=== PATIENT | female | born 1950 | race Caucasian/White ===

== ENCOUNTER 2017-09-17 14:54 | Emergency (ER) | payer MEDICARE, OTHER ==
[2017-09-17 15:09] VITALS: BP 169/72; PULSE 94; RESP 20; TEMP 98.1
--- NOTE | 2017-09-17 15:17 | ED ---
Lower Extremity Injury HPI - General Source: patient, RN notes reviewed Mode of arrival: wheelchair Limitations: no limitations <Grecia Cody - Last Filed: 09/17/17 15:16> <Han Landers - Last Filed: 09/17/17 16:20> - General Chief Complaint: Extremity Injury, Lower Stated Complaint: Ankle injury Time Seen by Provider: 09/17/17 15:12 - History of Present Illness Initial Comments: This is a 67-year-old female who presents to the emergency department with chief complaint of left ankle injury. Patient states she was working out in the yard this morning. At approximately 11 AM the metal handle of a wagon flew back and hit her in the lateral aspect of her left ankle. She states that she has been bearing weight and ambulating but is doing so in pain. Denies any other injuries or trauma. Denies fever, chills, chest pain, shortness of breath , abdominal pain, nausea or vomiting, constipation or diarrhea, dysuria or hematuria, numbness or tingling, headache or vision changes. (Grecia Cody) - Related Data Allergies Allergy/AdvReac Type Severity Reaction Status Date / Time methylprednisolone Allergy Unknown Verified 09/17/17 15:11 Review of Systems ROS Other: All systems not noted in ROS Statement are negative. <Grecia Cody - Last Filed: 09/17/17 15:16> ROS Other: All systems not noted in ROS Statement are negative. <Han Landers - Last Filed: 09/17/17 16:20> ROS Statement: Those systems with pertinent positive or pertinent negative responses have been documented in the HPI. Past Medical History Past Medical History: Chest Pain / Angina, Diabetes Mellitus History of Any Multi-Drug Resistant Organisms: None Reported Past Surgical History: Section, Cholecystectomy, Hysterectomy, Orthopedic Surgery Past Psychological History: No Psychological Hx Reported Smoking Status: Never smoker Past Alcohol Use History: None Reported Past Drug Use History: None Reported <Grecia Cody - Last Filed: 09/17/17 15:16> General Exam Limitations: no limitations <Grecia Cody - Last Filed: 09/17/17 15:16> <Han Landers - Last Filed: 09/17/17 16:20> - General Exam Comments Initial Comments: General: Awake and alert, well-developed; in no apparent distress. HEENT: Head atraumatic, normocephalic. Pupils are equal, round and reactive to light. Extraocular movements intact. Oropharynx moist without erythema or exudate. Neck: Supple. Normal ROM. Cardiovascular: Regular rate and rhythm. No murmurs, rubs or gallops. Chest symmetrical. Respiratory: Lungs clear to auscultation bilaterally. No wheezes, rales or rhonchi. Normal respiratory effort with no use of accessory muscles. Musculoskeletal: Normal range of motion of the left ankle. There is mild soft tissue swelling and tenderness at the lateral malleolus. No medial malleolar tenderness. Sensation is intact. Pedal pulses are 2+ equal and palpable bilaterally. Skin: [place], warm and dry without rashes or lesions. Neurological: Alert and oriented x3. CN II-XII grossly intact. Speech is fluent and answers are appropriate. No focal neuro deficits. Psychiatric: Normal mood and affect. No overt signs of depression or anxiety noted. (Grecia Cody) Vital Signs 09/17/17 15:06 Temperature 98.1 F Pulse Rate 94 Respiratory 20 Rate Blood Pressure 169/72 O2 Sat by Pulse 98 Oximetry Medical Decision Making <Grecia Cody - Last Filed: 09/17/17 15:16> - Radiology Data Radiology results: report reviewed (I did review the imaging and report no acute findings.), image reviewed <Han Landers - Last Filed: 09/17/17 16:20> - Medical Decision Making I did personally do the [id number] evaluation the patient did discuss the findings with her. No evidence of any fractures. Patient will be discharged she was instructed to use ice and elevation for last couple days Advil or Motrin for pain. (Han Landers) Disposition <Grecia Cody - Last Filed: 09/17/17 15:16> Is patient prescribed a controlled substance at d/c from ED?: No <Han Landers - Last Filed: 09/17/17 16:20> Clinical Impression: Contusion of left ankle Disposition: HOME SELF-CARE Condition: Good Instructions: Ankle Sprain (ED), Foot Contusion (ED) Additional Instructions: Over the counter Advil or Motrin for pain relief, follow up with primary care in 1-2 days. Rest, ice, elevate and compression with doretha wrap for pain relief and swelling as well. Referrals: None,Stated [Primary Care Provider] - 1-2 days
--- NOTE | 2017-09-17 15:39 | XR ---
Left ankle HISTORY: Trauma and pain 3 views of the left ankle Bone mineralization, joint spaces and alignment are maintained. No significant soft tissue swelling p resent. There is a plantar calcaneal spur. Arthropathy changes present in the foot. IMPRESSION: No fracture or dislocation is evident.
== END 2017-09-17 16:24 | disposition home or self-care (01) ==
LOC: EC 14:54
DX: S90.02XA Contusion of left ankle, initial encounter (principal); Z88.8 Allergy status to other drugs, medicaments and biological substances; W20.8XXA Other cause of strike by thrown, projected or falling object, initial encounter; Y92.096 Garden or yard of other non-institutional residence as the place of occurrence of the external cause
CPT/HCPCS: 99283

== ENCOUNTER 2019-04-16 11:29 | Emergency (ER) | payer MEDICARE ==
--- NOTE | 2019-04-16 12:27 | XR ---
EXAMINATION TYPE: XR chest 2V DATE OF EXAM: 04/16/2019 COMPARISON: NONE TECHNIQUE: PA and lateral views submitted. HISTORY: Cough FINDINGS: The lungs are clear and there is no pneumothorax, pleural effusion, or focal pneumonia. No overt fa ilure. Degenerative change of the spine. IMPRESSION: 1. No acute process.
--- NOTE | 2019-04-16 13:26 | ED ---
General Adult HPI - General Chief complaint: Upper Respiratory Infection Stated complaint: Congested, Headache, Weakness Time Seen by Provider: 04/16/19 12:57 Source: patient Mode of arrival: ambulatory Limitations: no limitations - History of Present Illness Initial comments: Dictation was produced using tsumobi dictation software. please excuse any grammatical, word or spelling errors. Chief Complaint: 68-year-old female presents with nasal congestion, runny nose for 2 weeks. History of Present Illness: 68-year-old female she states that for the last week she's been having cough, congestion fatigue. She states her symptoms have been ongoing for the last 2 weeks. Denies any overt sick contacts. Patient states she has a minimally productive cough. She does complain of constitutional symptoms. She does not however complain of any fatigue. His any chest pain. The ROS documented in this emergency department record has been reviewed and confirmed by me. Those systems with pertinent positive or negative responses have been documented in the HPI. All other systems are other negative and/or noncontributory. PHYSICAL EXAM: General Impression: Alert and oriented x3, not in acute distress HEENT: Normocephalic atraumatic, extra-ocular movements intact, pupils equal and reactive to light bilaterally, mucous membranes moist, rhinorrhea Cardiovascular: Heart regular rate and rhythm, S1&S2 audible, no murmurs, rubs or gallops Chest: Lungs clear to auscultation bilaterally, no rhonchi, no wheeze, no rales Abdomen: Bowel sounds present, abdomen soft, non-tender, non-distended, no organomegaly Musculoskeletal: Pulses present and equal in all extremities, no peripheral edema Motor: no focal deficits noted Neurological: CN II-XII grossly intact, no focal motor or sensory deficits noted Skin: Intact with no visualized rashes Psych: Normal affect and mood ED course: 68-year-old female presents with flulike symptoms for the last 2 weeks. Signs upon arrival shows heart rate of 105, rest of vital signs within acceptable limits.Return evaluation obtained. Mild leukocytosis 12.9, metabolic panel is unremarkable. Influenza test negative. Chest x-ray shows no acute processes. Given the patient has had prolonged symptoms for up to 2 weeks believe patient would benefit from a trial of antibiotics. Patient given fluids. She is reevaluated at bedside with improvement. Patient clear for discharge she is advised follow-up with PCP upon discharge. - Related Data Previous Rx's Medication Instructions Recorded Azithromycin [Zithromax Z-pack] 0 mg PO DIRECTED #6 tab 04/16/19 Allergies Allergy/AdvReac Type Severity Reaction Status Date / Time methylprednisolone Allergy Unknown Verified 04/16/19 12:01 Review of Systems ROS Statement: Those systems with pertinent positive or pertinent negative responses have been documented in the HPI. ROS Other: All systems not noted in ROS Statement are negative. Past Medical History Past Medical History: Chest Pain / Angina, Diabetes Mellitus History of Any Multi-Drug Resistant Organisms: None Reported Past Surgical History: Section, Cholecystectomy, Heart Catheterization, Hysterectomy, Orthopedic Surgery Past Psychological History: No Psychological Hx Reported Smoking Status: Never smoker Past Alcohol Use History: None Reported Past Drug Use History: None Reported General Exam Limitations: no limitations Course Vital Signs 04/16/19 04/16/19 04/16/19 11:58 12:13 13:54 Temperature 98.4 F 99 F 98.9 F Pulse Rate 105 H 99 Respiratory 20 20 Rate Blood Pressure 148/84 148/91 O2 Sat by Pulse 94 L 95 Oximetry Medical Decision Making - Lab Data Result diagrams: 04/16/19 13:45 04/16/19 13:45 Lab Results 04/16/19 04/16/19 04/16/19 Range/Units 12:25 13:45 13:45 WBC 12.9 H (3.8-10.6) k/uL RBC 4.68 (3.80-5.40) m/uL Hgb 13.9 (11.4-16.0) gm/dL Hct 41.0 (34.0-46.0) % MCV 87.7 (80.0-100.0) fL MCH 29.8 (25.0-35.0) pg MCHC 34.0 (31.0-37.0) g/dL RDW 12.1 (11.5-15.5) % Plt Count 325 (150-450) k/uL Neutrophils % 73 % Lymphocytes % 20 % Monocytes % 5 % Eosinophils % 1 % Basophils % 0 % Neutrophils # 9.5 H (1.3-7.7) k/uL Lymphocytes # 2.5 (1.0-4.8) k/uL Monocytes # 0.6 (0-1.0) k/uL Eosinophils # 0.1 (0-0.7) k/uL Basophils # 0.0 (0-0.2) k/uL Sodium 132 L (137-145) mmol/L Potassium 4.7 (3.5-5.1) mmol/L Chloride 98 (98-107) mmol/L Carbon Dioxide 24 (22-30) mmol/L Anion Gap 10 mmol/L BUN 15 (7-17) mg/dL Creatinine 0.73 (0.52-1.04) mg/dL Est GFR (CKD-EPI)AfAm >90 (>60 ml/min/1.73 sqM) Est GFR (CKD-EPI)NonAf 86 (>60 ml/min/1.73 sqM) Glucose 260 H (74-99) mg/dL Calcium 9.7 (8.4-10.2) mg/dL Magnesium 2.0 (1.6-2.3) mg/dL Influenza Type A RNA Not Detected (Not Detectd) Influenza Type B (PCR) Not Detected (Not Detectd) Disposition Clinical Impression: Common cold Disposition: HOME SELF-CARE Condition: Good Instructions (If sedation given, give patient instructions): Upper Respiratory Infection (ED) Prescriptions: Azithromycin [Zithromax Z-pack] 0 mg PO DIRECTED #6 tab Is patient prescribed a controlled substance at d/c from ED?: No Referrals: None,Stated [Primary Care Provider] - 1-2 days Time of Disposition: 14:22
[2019-04-16 13:54] VITALS: PULSE 99
[2019-04-16 13:55] LABS: Basophils % (A) 0 %; Eosinophils # (A) 0.1 k/uL (0-0.7); Eosinophils % (A) 1 %; HGB 13.9 gm/dL (11.4-16.0); Lymphocytes # (A) 2.5 k/uL (1.0-4.8); Lymphocytes % (A) 20 %; MCH 29.8 pg (25.0-35.0); MCV 87.7 fL (80.0-100.0); Monocytes # (A) 0.6 k/uL (0-1.0); Monocytes % (A) 5 %; Neutrophils # (A) 9.5 k/uL (1.3-7.7); Neutrophils % (A) 73 %; Platelet Count 325 k/uL (150-450); RBC 4.68 m/uL (3.80-5.40); RDW 12.1 % (11.5-15.5); WBC 12.9 k/uL (3.8-10.6)
[2019-04-16 14:08] LABS: African American GFR (CKD) >90 (>60 ml/min/1.73 sqM); Anion Gap 10 mmol/L; Blood Urea Nitrogen 15 mg/dL (7-17); Calcium 9.7 mg/dL (8.4-10.2); Carbon Dioxide 24 mmol/L (22-30); Chloride 98 mmol/L (98-107); Glucose 260 mg/dL (74-99); Non-African American GFR(CKD) 86 (>60 ml/min/1.73 sqM); Potassium 4.7 mmol/L (3.5-5.1); Sodium 132 mmol/L (137-145)
[2019-04-16 14:38] VITALS: BP 143/62; RESP 18; TEMP 98.5
== END 2019-04-16 14:38 | disposition home or self-care (01) ==
LOC: EC 11:29
DX: J00 Acute nasopharyngitis [common cold] (principal); D72.829 Elevated white blood cell count, unspecified; Z88.8 Allergy status to other drugs, medicaments and biological substances
CPT/HCPCS: 36415; 71046; 80048; 83735; 85025; 87502; 99284

== ENCOUNTER → 2021-08-28 | Outpatient (CLI) | payer BC, MEDICARE ==
--- NOTE | 2021-08-28 12:23 | MR ---
EXAMINATION TYPE: MR cervical spine wo con DATE OF EXAM: 08/28/2021 COMPARISON: Neck pain HISTORY: Neck pain TECHNIQUE: Multiplanar, multisequence images of the cervical spine were acquired without contrast. C2-C3: Degenerative disc disease with disc desiccation. Mild facet arthropathy. No canal stenosis or focal herniation. Neural foramina patent C3-C4: Disc desiccation and mild degenerative disc disease. There is uncovertebral joint hypertrophy greater on the right with mild bilateral foraminal encroachment but no evidence of disc herniation or canal stenosis C4-C5: Moderate to severe degenerative disc disease and uncovertebral joint hypertrophy and mild disc bulging capped by spur. No Canal stenosis. Moderate bilateral foraminal encroachment. C5-C6: Severe degenerative disc disease with discogenic marrow changes. No focal disc herniation. The re is uncovertebral joint hypertrophy greater on the right with mild right foraminal encroachment. No Canal stenosis C6-C7: Moderate to severe degenerative disc disease with no evidence of canal stenosis or disc hernia tion. Neural foramina patent. C7-T1: Disc bulging but no focal herniation or canal stenosis. No foraminal encroachment. Incidental note is made of severe degenerative disc disease T3-T4 with sagittal disc bulging. Cervical segments are intact. There is normal alignment. Cervical spinal cord is of normal signal. Craniovertebral junction relationships are within normal limits. IMPRESSION: 1. Multilevel moderate to severe degenerative disc disease with disc bulging seen at C4-C5. There is a moderate bilateral foraminal encroachment but no canal stenosis. 2. Multilevel uncovertebral joint hypertrophy and foraminal encroachment as discussed above. 3. Sagittal disc bulging T3-T4 correlate with thoracic spine MRI as clinically warranted.
== END | disposition home or self-care (01) ==
LOC: RADMRIMAIN 09:41
PROVIDERS: ATTEND Family Medicine
DX: M50.221 Other cervical disc displacement at C4-C5 level (principal); M51.24 Other intervertebral disc displacement, thoracic region; M89.38 Hypertrophy of bone, other site
CPT/HCPCS: 72141

== ENCOUNTER → 2022-02-15 | Outpatient (CLI) | payer BC, MEDICARE ==
[2022-02-15 09:06] VITALS: BP 149/81; PULSE 99; RESP 18; TEMP 98.3
--- NOTE | 2022-02-15 09:24 | P.PAINPG ---
PQRS Measure Charge Sheet Comment: HISTORY OF PRESENT ILLNESS: 71 yr old female as a referral from Dr Lau presents today w severe and chronic neck and LBP secondary to DDD, spondylosis and facet arthropathy without myelopathy for evaluation. Pt states her neck pain is currently at 2/10 in intensity but escalates as high as 4/10 w hyperextension and UE lifting. She admits her neck pain is not as problematic as her LBP. Her LBP pain level is currently at 7/10 in intensity, constant, dull/ achy in character w shooting pain towards the RLE. Pain is provoked by overactivity. Pain is received w PT x 6 wks in Oct 2021, heat, meds (Aleve), topicals, sitting w LEs elevated, repositioning and rest. PMH Chest Pain / Angina, Diabetes Mellitus PSH: Section, Cholecystectomy, Heart Catheterization, Hysterectomy, Orthopedic Surgery SH: Negative x 3 FH: Non contributory All: See list Meds: See list REVIEW OF ORGAN SYSTEMS: CONSTITUTIONAL: No fevers or chills. No recent weight loss. NEUROLOGICAL: + numbness and tingling along the distal extremities. No seizure disorders or headaches. MUSCULOSKELETAL: + pain PSYCHIATRIC: Denies current depression or suicidal thoughts. Physical Examinations : Constitutional : Cooperative , not in acute distress . Neurologic : Cranial nerve II to XII intact. No focal neurological deficits. Psychiatric : alert & oriented x 3. Matching mood & appropriate affect. Judgment & insight intact. Musculoskeletal : Cervical Spine Motor strength in the deltoid and biceps: Normal right side. Normal Left side Motor strength biceps and the wrist extensors: Normal right side . Normal left side Motor strength in the triceps muscle: Normal right side. Normal left side Deep tendon reflexes: Normal at the biceps. Normal at Brachioradialis. Normal at triceps Vertebral body tenderness to deep palpation over Cervical facet loading test: positive bilaterally Spurling test: positive bilaterally Neck distraction test: positive bilaterally Nigel sign: positive bilaterally Lumbar spine Motor strength lower extremities ,thigh and legs 5/5 Right side , 5/5 Left side Deep tendon reflexes : Normal Knee Jerk. Normal Ankle Jerk Vertebral body tenderness over L4 Lumbar facet Loading Test: positive Right / positive Left Range of motion of the lumbar spine Flexion 30 degrees, extension 10 degrees Straight Leg Raise test: Left/ Right positive at degree James test: positive right / positive left. Severe tenderness over the Sacroiliac joint on the Right / Left sides Gaenslen test: positive bilaterally Seated flexion test: positive bilaterally. Sacral spine : Severe tenderness over the Sacroiliac joint: right side / left side Range of motion: Flexion of the lumbar spine <60 degrees Range of motion: Extension of the mariusz mbar spine <20 degrees Gaenslen's Test positive Valerio's Test positive James test: positive right side / left side Thigh Thrust Test Sacral Thrust Test Imaging: pending Assessment/ Plan : Cervical DDD, Cervical Spondylosis, Lumbar DDD Recommendation of RTO in 2 wks after completion of MRI of the lumbar spine for a re evaluation Risks, benefits of procedure discussed and patient verbalized understanding. Denies aspirin or anti- coagulant use or medical history of diabetes. Protocol for discontinuation/ continuation of medications marciano procedure discussed. All questions answered. I have spent greater than 30 minutes on patient care today. Dr Haskins was available by phone for the evaluation of this patient. The time was used to review the medical records including relevant urine studies and Prescription history (MAPs), review of the available imaging, evaluation and examination of the patient, coordination of care with the medical staff and if applicable referring physicians, as well as creation of the medical record PQRS Narrative: Smoking Status Never smoker Home Medications: Ambulatory Orders Dulaglutide [Trulicity] 0.75 mg SQ 02/15/22 Controlled Substance Measures - Controlled Substance Measures Is patient prescribed a controlled substance at discharge?: No
== END ==
LOC: PNWHC3 07:50
PROVIDERS: ATTEND Specialist
DX: M47.812 Spondylosis without myelopathy or radiculopathy, cervical region (principal); M51.36 Other intervertebral disc degeneration, lumbar region; Z88.8 Allergy status to other drugs, medicaments and biological substances
CPT/HCPCS: 99211

== ENCOUNTER → 2022-03-02 | Outpatient (CLI) | payer BC, MEDICARE ==
--- NOTE | 2022-03-02 15:43 | MR ---
EXAMINATION TYPE: MR lumbar spine wo con DATE OF EXAM: 03/02/2022 COMPARISON: None HISTORY: Lumbar spine pain CONTRAST: 0 mL intravenous . TECHNIQUE: Multiplanar, multisequence images of the lumbar spine were acquired. FINDINGS: L5-S1: Facet hypertrophy is present. No significant posterior lateral thecal sac compression is evide nt. No spinal canal stenosis. Moderate right foraminal stenosis due to disc bulging into the foramen is present. Correlate with right S1 radicular symptoms. No significant disc bulge or focal disc herni ation is evident. L4-L5: No spinal canal stenosis or neural foraminal stenosis is present. Mild diffuse disc bulge is p resent with minimal anterior thecal sac contact. L3-L4: No focal disc herniation or significant disc bulge. No spinal canal stenosis. Facet hypertroph y is present. Moderate left foraminal stenosis is present due to facet hypertrophy. L2-L3: No significant disc bulge or disc herniation. No spinal canal stenosis. L1-L2: There is loss of disc height at this level. No focal disc herniation or significant disc bulge is evident. No spinal canal stenosis or neural foraminal stenosis. T12-L1: No significant disc bulge or disc herniation. No spinal canal stenosis. No foraminal stenos is. Cord terminates at the L1-2 level. IMPRESSION: 1. Disc bulge in the right foramen at L5-S1. Correlate with right S1 radicular symptoms. 2. Other is moderate left foraminal stenosis L3-4 due to facet hypertrophy.
== END | disposition home or self-care (01) ==
LOC: RADMRIMAIN 12:51
PROVIDERS: ATTEND Orthopaedic Surgery
DX: M47.817 Spondylosis without myelopathy or radiculopathy, lumbosacral region (principal); M99.74 Connective tissue and disc stenosis of intervertebral foramina of sacral region; M51.27 Other intervertebral disc displacement, lumbosacral region
CPT/HCPCS: 72148

== ENCOUNTER → 2022-03-08 | Outpatient (CLI) | payer BC, MEDICARE ==
[2022-03-08 08:34] VITALS: BP 143/86; PULSE 94; RESP 18; TEMP 98.1
--- NOTE | 2022-03-08 14:22 | P.PAINPG ---
PQRS Measure Charge Sheet Comment: A 71 yr old female with a history of severe and chronic LBP x 1 yr secondary to lumbar DDD and spondylosis with facet arthropathy without myelopathy presents today for MRI results. Pain level is currently at 4/10 in intensity, constant, localized in the center lower lumbar spine, stabbing/ achy in character w shooting towards the BLEs. Pain is provoked by bending. Pain is alleviated with PT x 6 wks in October 2021, home exercise daily, yoga weekly, chiropractic treatments are ineffective, heat, medications from Dr Lau, thermal patches, reclining, repositioning and rest. Interventional pain procedures completed include Denies Patient is currently on Aleve Patient denies any side effects of the medication(s), denies excessive drowsiness or sleepiness, denies suicidal ideation and reports that the current pain medication is helping to control the pain and improve activities of daily living. Patient denies any motor or sensory deficits. Patient denies any fever or night sweats, denies any change in the bowel movements or urination. Physical Examination: -Constitutional: Cooperative. Not in acute distress . - Neurologic: Cranial nerve II to XII intact. No focal neurological deficits. - Psychatric: Alert & oriented x 3. Matching mood & appropriate affect. Judgment and insight intact. - Musculoskeletal: Cervical spine: Muscle bulk/ tone/ strength in the bilateral upper extremities normal Vertebral body tenderness to palpation over Spurling test positive Distraction test positive Facet loading test positive Thoracic spine Muscle bulk / tone/ strength in the bilateral paraspinal muscles normal Vertebral body tender to palpation over Facet loading test positive Lumbar spine: Motor bulk/ tone/ strength lower extremities , thigh and legs : 5/5 Deep tendon reflexes : Normal Knee Jerk. Normal Ankle Jerk . Vertebral body tenderness to palpation over L5 Lumbar Facet Loading Test positive Straight Leg Raise: positive at 30 degrees right side/ left side Gaenslen's Test positive Sacral spine : Severe tenderness over the Sacroiliac joint: right side / left side Range of motion: Flexion of the lumbar spine <60 degrees Range of motion: Extension of the lumbar spine <20 degrees Gaenslen's Test positive James test: positive right side / left side Thigh Thrust Test Sacral Thrust Test Imaging: MRI without contrast of the lumbar spine from 03/02/22 reviewed Assessment and plan: Chronic low back pain secondary to lumbar degenerative disc disease, spondylosis with facet arthropathy without myelopathy Recommendation of ANTHONY L5S1. May need a series of injections, up to 3 within a six-month timeframe, for optimal pain relief. Risks, benefits of procedure discussed and pt verbalized understanding. Admits to anticoagulant use or medical history of diabetes. Protocol for discontinuation/continuation of medications marciano procedure discussed. All patient questions answered I have spent less than 30 minutes on patient care today. Dr Haskins was available by phone for the evaluation of this patient. The time was used to review the medical records including relevant urine studies and Prescription history (MAPs), review of the available imaging, evaluation and examination of the patient, coordination of care with the medical staff and if applicable referring physicians, as well as creation of the medical record PQRS Narrative: Smoking Status Never smoker Hx Alcohol Use (MH) No Home Medications: Ambulatory Orders Dulaglutide [Trulicity] 0.75 mg SQ 02/15/22 Controlled Substance Measures - Controlled Substance Measures Is patient prescribed a controlled substance at discharge?: No
== END ==
LOC: PNWHC3 07:31
PROVIDERS: ATTEND Specialist
DX: M47.816 Spondylosis without myelopathy or radiculopathy, lumbar region (principal); M51.36 Other intervertebral disc degeneration, lumbar region; G89.29 Other chronic pain; Z79.01 Long term (current) use of anticoagulants; E11.9 Type 2 diabetes mellitus without complications; Z88.8 Allergy status to other drugs, medicaments and biological substances; Z79.84 Long term (current) use of oral hypoglycemic drugs
CPT/HCPCS: 99211

== ENCOUNTER 2022-04-17 08:40 | Day surgery (SDC) | payer BC, MEDICARE ==
[2022-04-13 14:14] VITALS: BMI 27.3
[~2022-04-17 08:40] MED LIST: LACTATED RINGERS 1,000 ML IV SCH; LIDOCAINE 1% (10MG/ML) FOR IV START INTRADERMA PRN
[2022-04-17 09:12] LABS: Glucose,Whole Blood 167 mg/dL (70-110)
[2022-04-17 09:13] VITALS: TEMP 97.8
[2022-04-17] MEDS ORDERED: IOPAMIDOL M200 10 ML VIAL ONE (09:48)
[2022-04-17] MEDS ORDERED: MIDAZOLAM 2 MG/2 ML VIAL ONE (09:48)
[2022-04-17] MEDS ORDERED: fentaNYL (PF) 50 MCG/ML 2 ML AMP ONE (09:48)
[2022-04-17] MEDS ORDERED: methylPREDNISolone ACETATE 40 MG/ML 1 ML VIAL ONE (09:48)
[2022-04-17] MEDS ORDERED: IV FLUID CONTINUATION 600 ML IV ONE (10:02)
--- NOTE | 2022-04-17 10:04 | P.PCN ---
Date of Procedure: 04/17/22 Procedure(s) Performed: PREOPERATIVE DIAGNOSIS: 1- Lumbar Degenerative Disc Diseases 2-Lumbar spondylosis with Facet arthropathy without myelopathy. 3-lumbar radiculopathy POSTOPERATIVE DIAGNOSIS: Same as preop diagnosis. PROCEDURE 1. Lumbar epidural steroid injection under fluoroscopic guidance at the L5-S1 level. (Fluoroscopy imaging was available in radiology department) 2. Lumbar epidurogram. ANESTHESIA: moderate sedation with intravenous Versed 1 mg ,and fentanyle 50 Mcg Sedation start time : Sedation end time : EBL: Minimal PROCEDURE INDICATION: The patient with low back pain and radiculitis symptoms unresponsive to conservative treatment. Fluoroscopy was used to optimize visualization of the needle placement and to maximize safety. PROCEDURE DESCRIPTION / TECHNIQUE: The patient was seen and identified in the preoperative area. Risks, benefits, complications including but not limited to infections ,bleeding ,allergic reaction to the medications ,nerve damage and not complete pain releife , and alternatives were discussed with the patient. The patient agreed to proceed with the procedure and signed the consent. IV was started, and vital signs were stable. Patient was taken to the OR and time out was completed. The patient was placed in the prone position on procedure table and a pillow was placed under the abdomen to reduce lumbar lordosis. The lumbosacral area was prepped and draped in the usual sterile fashion.ere closely monitored during the procedure. Conscious sedation was used during the procedure to decrease patients anxiety. Vital signs was monitered during the entire procedure. Using anterior-posterior fluoroscopy, the L5-S1 interlaminar space was identified and the skin over this site was marked and then infiltrated with 1% lidocaine subcutaneously. Subsequently, a 20-gauge Tuohy epidural needle was inserted and advanced toward the epidural space using the ``Loss of resistance technique and guided by AP and lateral fluoroscopy. The correct needle position in the epidural space was verified with the injection of 2 mL of the water soluble contrast dye Isovue 200 contrast and observing an excellent epidurogram with the epidural spread of the dye, after negative aspiration for blood and CSF and in the absence of paresthesias. Again after negative aspiration, a 6 ml mixture containing 40 mg of Depo-medrol ( Preservetive Free ), and 2 ml of pre servative free Normal Saline, and 2 ml of preservative free lidocaine 1% solution was injected and a washout of epidurogram was seen. Needle was withdrawn intact, skin was cleansed, and bandages were applied. COMPLICATIONS: None DISPOSITION / PLANS: The patient was placed in a supine position and transferred to the recovery area in a stable condition for observation. There was no evidence of lower extremity motor or sensory deficit after the procedure. Patient was discharged from the recovery room after meeting discharge criteria. Home discharge instructions were given to the patient by the staff. The patient was reexamined prior to discharge. The patient will schedule a follow up in the clinic in 2-4 weeks. note=in the record patient had ALLERGIES to methylprednisolone, increased her blood sugar !!!!!!!!!,patient already on medication for blood sugar control ( TRULICITY ) and I told the patient that her blood sugar could go higher ,secondary to the injections today, patient will monitor her blood sugars daily
[2022-04-17 10:05] VITALS: RESP 18
[2022-04-17 10:21] VITALS: BP 133/77; PULSE 77
--- NOTE | 2022-04-17 10:37 | FL ---
Intraoperative/procedural fluoroscopic services were provided for lumbar epidural injection. Total fl uoroscopy time is 2 seconds with a total of 1 submitted image to PACS. Please see the operative note for further details.
== END 2022-04-17 10:32 | disposition home or self-care (01) ==
LOC: ORPAIN 08:40
PROVIDERS: ATTEND Specialist
DX: M51.16 Intervertebral disc disorders with radiculopathy, lumbar region (principal); M47.26 Other spondylosis with radiculopathy, lumbar region; Z88.8 Allergy status to other drugs, medicaments and biological substances
CPT/HCPCS: 62323; J2250; J1030; J3010; Q9966

== ENCOUNTER → 2022-05-03 | Outpatient (CLI) | payer BC, MEDICARE ==
--- NOTE | 2022-05-03 11:22 | XR ---
EXAMINATION TYPE: XR thoracic spine 2V DATE OF EXAM: 05/03/2022 COMPARISON: NONE HISTORY: Pain TECHNIQUE: 3 views submitted FINDINGS: Alignment is anatomic. There is no compression deformities. There is a scoliotic curve to the spine with moderate to severe multilevel degenerative disc disease and hypertrophic spurring. Diffuse osteo penia. Surgical clip in the right upper quadrant. IMPRESSION: 1. Scoliosis with moderate to severe multilevel degenerative disc disease.
== END | disposition home or self-care (01) ==
LOC: RADXRMAIN 10:12
PROVIDERS: ATTEND Physician Assistant Medical
DX: M51.34 Other intervertebral disc degeneration, thoracic region (principal); M41.84 Other forms of scoliosis, thoracic region
CPT/HCPCS: 72070

== ENCOUNTER → 2022-05-03 | Outpatient (CLI) | payer BC, MEDICARE ==
[2022-05-03 09:31] VITALS: BP 147/86; PULSE 99; RESP 18; TEMP 97.8
--- NOTE | 2022-05-03 14:43 | P.PAINPG ---
PQRS Measure Charge Sheet Comment: A 72 yr old female with a history of severe and chronic mid to low back pain secondary to thoraco lumbar DDD and spondylosis with facet arthropathy without myelopathy presents today for evaluation s/p MAHSA L5-S1. Pt states she experienced 50 % pain relief x 2 wks s/p procedure. Pain level is provoked at 8 /10 in intensity, constant, localized in the thoracic spine, achy in character w shooting towards the flanks. Pain is provoked by bending, twisting, lifting. Pain is alleviated with PT x 6 wks in October 2021, home exercise daily, heat, meds (Aleve, Lidoderm), repositioning and rest. Interventional pain procedures completed include MAHSA L5-S1 Patient is currently on Aleve OTC, Lidoderm 4% Patient denies any side effects of the medication(s), denies excessive drowsiness or sleepiness, denies suicidal ideation and reports that the current pain medication is helping to control the pain and improve activities of daily living. Patient denies any motor or sensory deficits. Patient denies any fever or night sweats, denies any change in the bowel movements or urination. Physical Examination: -Constitutional: Cooperative. Not in acute distress . - Neurologic: Cranial nerve II to XII intact. No focal neurological deficits. - Psychatric: Alert & oriented x 3. Matching mood & appropriate affect. Judg ment and insight intact. - Musculoskeletal: Cervical spine: Muscle bulk/ tone/ strength in the bilateral upper extremities normal Vertebral body tenderness to palpation over Spurling test positive Distraction test positive Facet loading test positive Thoracic spine Muscle bulk / tone/ strength in the bilateral paraspinal muscles normal Vertebral body tender to palpation over Facet loading test positive Lumbar spine: Motor bulk/ tone/ strength lower extremities , thigh and legs : 5/5 Deep tendon reflexes : Normal Knee Jerk. Normal Ankle Jerk . Vertebral body tenderness to palpation over T6, T7, T8 Lumbar Facet Loading Test positive Straight Leg Raise: positive at 30 degrees right side/ left side Gaenslen's Test positive Sacral spine : Severe tenderness over the Sacroiliac joint: right side / left side Range of motion: Flexion of the lumbar spine <60 degrees Range of motion: Extension of the lumbar spine <20 degrees Gaenslen's Test positive James test: positive right side / left side Thigh Thrust Test Sacral Thrust Test Assessment and plan: Chronic mid back pain secondary to thoracic DDD, spondylosis with facet arthropathy without myelopathy Recommendation of thoracic x ray re:' M51.34. May need additional testing if indicated. May return to this clinic within 4 wks for a re evaluation. All patient questions answered I have spent less than 30 minutes on patient care today. Dr Haskins was available by phone for the evaluation of this patient. The time was used to review the medical records including relevant urine studies and Prescription history (MAPs), review of the available imaging, evaluation and examination of the patient, coordination of care with the medical staff and if applicable referring physicians, as well as creation of the medical record PQRS Narrative: Smoking Status Never smoker Hx Alcohol Use (MH) No Home Medications: Ambulatory Orders Dulaglutide [Trulicity] 0.75 mg SQ MAR 02/15/22 Naproxen Sodium [Aleve] 220 mg PO BID 05/03/22 Controlled Substance Measures - Controlled Substance Measures Is patient prescribed a controlled substance at discharge?: No
== END ==
LOC: PNWHC3 08:58
PROVIDERS: ATTEND Specialist
DX: M47.814 Spondylosis without myelopathy or radiculopathy, thoracic region (principal); M51.34 Other intervertebral disc degeneration, thoracic region; Z88.8 Allergy status to other drugs, medicaments and biological substances
CPT/HCPCS: 99211

== ENCOUNTER 2022-08-02 09:36 | Day surgery (SDC) | payer BC, MEDICARE ==
[2022-08-02 10:40] VITALS: TEMP 97
[2022-08-02 10:43] LABS: Glucose,Whole Blood 118 mg/dL (70-110)
[2022-08-02] MEDS ORDERED: IOPAMIDOL M200 10 ML VIAL ONE (10:52)
[2022-08-02] MEDS ORDERED: fentaNYL (PF) 50 MCG/ML 2 ML AMP ONE (10:52)
[2022-08-02] MEDS ORDERED: methylPREDNISolone ACETATE 80 MG/ML 1 ML VIAL ONE (10:52)
[2022-08-02] MEDS ORDERED: MIDAZOLAM 2 MG/2 ML VIAL ONE (10:52)
--- NOTE | 2022-08-02 11:08 | P.PCN ---
Date of Procedure: 08/02/22 Procedure(s) Performed: PREOPERATIVE DIAGNOSIS: 1- thoracic Degenerative Disc Diseases 2-thoracic spinal stenosis POSTOPERATIVE DIAGNOSIS: 1-thoracic degenerative disc disease. 2-thoracic spinal stenosis. PROCEDURE 1. Thoracic epidural steroid injection under fluoroscopic guidance at the T9-10 level. (Fluoroscopy imaging was available in radiology department) 2. Thoracic epidurogram. ANESTHESIA: moderate sedation with intravenous Versed 1 mg ,and fentanyle 50 Mcg Sedation start time : 1054 Sedation end time : 1103 EBL: Minimal PROCEDURE INDICATION: The patient with mid and low back pain and radiculitis symptoms unresponsive to conservative treatment. Fluoroscopy was used to optimize visualization of the needle placement and to maximize safety. PROCEDURE DESCRIPTION / TECHNIQUE: The patient was seen and identified in the preoperative area. Risks, benefits, complications including but not limited to infections ,bleeding ,allergic reaction to the medications ,nerve damage and not complete pain releife , and alternatives were discussed with the patient. The patient agreed to proceed with the procedure and signed the consent. IV was started, and vital signs were stable. Patient was taken to the OR and time out was completed. The patient was placed in the prone position on procedure table and a pillow was placed under the abdomen to reduce lumbar lordosis. The lumbosacral area was prepped and draped in the usual sterile fashion.ere closely monitored during the procedure. Conscious sedation was used during the procedure to decrease patients anxiety. Vital signs was monitered during the entire procedure. Using anterior-posterior fluoroscopy, the T9-10 interlaminar space was identified and the skin over this site was marked and then infiltrated with 1% lidocaine subcutaneously. Subsequently, a 20-gauge Tuohy epidural needle was inserted and advanced toward the epidural space using the ``Loss of resistance technique and guided by AP and lateral fluoroscopy. The correct needle position in the epidural space was verified with the injection of 2 mL of the water soluble contrast dye Isovue 200 contrast and observing an excellent epidurogram with the epidural spread of the dye, after negative aspiration for blood and CSF and in the absence of paresthesias. Again after negative aspiration, a 6 ml mixture containing 60 mg of Depo-medrol ( Preservetive Free ), and 2 ml of preservative free Normal Saline, and 2 ml of preservative free lidocaine 1% solution was injected and a washout of epidurogram was seen. Needle was withdrawn intact, skin was cleansed, and bandages were applied. COMPLICATIONS: None DISPOSITION / PLANS: The patient was placed in a supine position and transferred to the recovery area in a stable condition for observation. There was no evidence of lower extremity motor or sensory deficit after the procedure. Patient was discharged from the recovery room after meeting discharge criteria. Home discharge instructions were given to the patient by the staff. The patient was reexamined prior to discharge. The patient will schedule a follow up in the clinic in 2-4 weeks.
[2022-08-02] MEDS ORDERED: IV FLUID CONTINUATION 1,000 ML IV ONE (11:09)
[2022-08-02 11:20] LABS: Glucose,Whole Blood 111 mg/dL (70-110)
--- NOTE | 2022-08-02 11:21 | FL ---
Intraoperative/procedural fluoroscopic services were provided. Total fluoroscopy time is 5 seconds wi th a total of 1 submitted images to PACS. Please see the operative/procedural note for further detail s. DAP: [phone]
[2022-08-02 11:22] VITALS: RESP 16
[2022-08-02 11:24] VITALS: BP 107/72; PULSE 84
== END 2022-08-02 12:11 ==
LOC: ORPAIN 09:36
PROVIDERS: ATTEND Specialist
DX: M51.14 Intervertebral disc disorders with radiculopathy, thoracic region (principal); M48.04 Spinal stenosis, thoracic region; Z91.041 Radiographic dye allergy status; Z88.8 Allergy status to other drugs, medicaments and biological substances
CPT/HCPCS: 62321; J2250; J1040; J3010; Q9966; 99152

== ENCOUNTER → 2022-08-20 | Outpatient (CLI) | payer BC, MEDICARE ==
[2022-08-20 09:55] VITALS: BP 135/85; PULSE 104; RESP 18; TEMP 97.9
--- NOTE | 2022-08-20 15:14 | P.PAINPG ---
PQRS Measure Charge Sheet Comment: A 72 yr old female with a history of severe and chronic mid back pain secondary to thoracic DDD and spondylosis with facet arthropathy without myelopathy presents today for evaluation s/p MAHSA T9-T10. PT states she experienced 90% pain relief x 2 wks s/p procedure. Pain level is provoked at 3/10 in intensity, constant, localized in the thoracic spine, achy in character w shooting towards the flanks. Pain is provoked by over activity, bending, lifting. Pain is alleviated with medications, topicals, repositioning and rest. Interventional pain procedures completed include TESI T9-T10 Patient is currently on Tyl, Lidoderm Patient denies any side effects of the medication(s), denies excessive drowsiness or sleepiness, denies suicidal ideation and reports that the current pain medication is helping to control the pain and improve activities of daily living. Patient denies any motor or sensory deficits. Patient denies any fever or night sweats, denies any change in the bowel movements or urination. Physical Examination: -Constitutional: Cooperative. Not in acute distress . - Neurologic: Cranial nerve II to XII intact. No focal neurological deficits. - Psychatric: Alert & oriented x 3. Matching mood & appropriate affect. Judgment and insight intact. - Musculoskeletal: Cervical spine: Muscle bulk/ tone/ strength in the bilateral upper extremities normal Vertebral body tenderness to palpation over Spurling test positive Distraction test positive Facet loading test positive TTP Thoracic spine Muscle bulk / tone/ strength in the bilateral paraspinal muscles normal Vertebral body tender to palpation over Facet loading test positive TTP Lumbar spine: Motor bulk/ tone/ strength lower extremities , thigh and legs : 5/5 Deep tendon reflexes : Normal Knee Jerk. Normal Ankle Jerk . Vertebral body tenderness to palpation over Lumbar Facet Loading Test positive Straight Leg Raise: positive at 30 degrees right side/ left side Gaenslen's Test positive Sacral spine : Severe tenderness over the Sacroiliac joint: right side / left side Range of motion: Flexion of the lumbar spine <60 degrees Range of motion: Extension of the lumbar spine <20 degrees Gaenslen's Test positive right side / left side James test: positive right side / left side Thigh Thrust Test positive right side / left side Sacral Thrust Test positive right side / left side Assessment and plan: Chronic mid back pain secondary to thoracic DDD, spondylosis with facet arthropathy without myelopathy Exhibited sufficient pain relief s/p procedure. May return as needed. All questions answered. I have spent less than 30 minutes on patient care today. Dr Haskins was available by phone for the evaluation of this patient. The time was used to review the medical records including relevant urine studies and Prescription history (MAPs), review of the available imaging, evaluation and examination of the patient, coordination of care with the medical staff and if applicable referring physicians, as well as creation of the medical record PQRS Narrative: Smoking Status Never smoker Hx Alcohol Use (MH) No Home Medications: Ambulatory Orders Dulaglutide [Trulicity] 1.5 mg SQ MAR 02/15/22 Naproxen Sodium [Aleve] 220 mg PO BID 05/03/22 lisinopriL 2.5 mg PO HS 07/30/22 Controlled Substance Measures - Controlled Substance Measures Is patient prescribed a controlled substance at discharge?: No
== END ==
LOC: PNWHC3 08:58
PROVIDERS: ATTEND Specialist
DX: M51.34 Other intervertebral disc degeneration, thoracic region (principal); M47.814 Spondylosis without myelopathy or radiculopathy, thoracic region; G89.29 Other chronic pain; Z88.8 Allergy status to other drugs, medicaments and biological substances
CPT/HCPCS: 99211

== ENCOUNTER → 2023-05-22 | Outpatient (CLI) | payer BC, MEDICARE ==
--- NOTE | 2023-05-22 08:53 | BD ---
EXAMINATION TYPE: Axial Bone Density DATE OF EXAM: 05/22/2023 CLINICAL HISTORY: 73 years old Female. ICD-10 CODE: Z13.820 SCR OSTEOPOROSIS Height: 59.3 Weight: 135 FRAX RISK QUESTIONS: Secondary Osteoporosis: yes 3. Menopause before 45: yes, at 44 total hyst RISK FACTORS HISTORY OF: nothing to note here MEDICATIONS: Monjero for diabetes, EXAM MEASUREMENTS: Bone mineral densitometry was performed using the [employer] System. Bone mineral density as measured about the Lumbar spine is: ----- L1-L4(G/cm2): 0.931 T Score Values are as follows: ----- L1: -1.0 ----- L2: -2.4 ----- L3: -2.7 ----- L4: -2.2 ----- L1-L4: -2.1 Z Score Values are as follows: ----- L1: 0.8 ----- L2: -0.6 ----- L3: -0.8 ----- L4: -0.4 ----- L1-L4: -0.2 Bone mineral density is her first dexa study at [facility]. Bone mineral density about the R hip (g/cm2): 0.546 Bone mineral density about the L hip (g/cm2): 0.647 T Score values are as follows: -----R Neck: -4.0 -----L Neck: -3.6 -----R Total: -3.7 -----L Total: -2.9 Z Score values are as follows: -----R Neck: -2.2 -----L Neck: -1.7 -----R Total: -2.0 -----L Total: -1.2 Bone mineral density is first for [facility]. FRAX%s: The graph provided illustrates a 33.5% chance for a major osteoporotic fx and a 18.1% chance for the hips probability for fx in 10 years time. IMPRESSION: Osteoporosis (T Score less than -2.5). There is increased fracture risk and therapy is usually indicated based on age. Re-Screen 1-2 years. NOTE: T-SCORE=SD OF THE YOUNG ADULT MEAN.
--- NOTE | 2023-05-22 20:04 | MM ---
Reason for Exam: Screening (asymptomatic). Last mammogram was performed 13 year(s) and 1 month(s) ago. Patient History: Menarche at age 14. First Full-Term at age 27. Left ovary removed at age 49. Right ovary removed at age 49. Hysterectomy at age 49. Postmenopausal. Currently using Estrogen, beginning at age 49 for 9 years, 7 months. Risk Values: Edwige 5 year model risk: 2.0%. NCI Lifetime model risk: 5.1%. Prior Study Comparison: No prior studies available for comparison. Tissue Density: There are scattered fibroglandular densities. Findings: Analyzed By CAD. No significant mass, suspicious microcalcification, or other discrete abnormality is seen. Area of focal asymmetry left upper outer quadrant does not persist on 3 images. Overall Assessment: Benign, BI-RAD 2 Management: Screening Mammogram of both breasts in 1 year. . Patient should continue monthly self-breast exams. A clinical breast exam by your physician is recommended on an annual basis. This exam should not preclude additional follow-up of suspicious palpable abnormalities. Note on Edwige scores and lifetime risk: 1. A Edwige score greater than 3% is considered moderate risk. If this is the case, consider specialist referral to assess eligibility for a risk reducing agent. 2. If overall lifetime risk for the development of breast cancer is 20% or higher, the patient may qualify for future screening with alternating mammogram and breast MRI. Electronically signed and approved by: Robert Arreguin M.D. Radiologist
== END | disposition home or self-care (01) ==
LOC: RADMAMWWP 07:17
PROVIDERS: ATTEND Family Medicine
DX: Z12.31 Encounter for screening mammogram for malignant neoplasm of breast (principal); Z13.820 Encounter for screening for osteoporosis; Z78.0 Asymptomatic menopausal state
CPT/HCPCS: 77063; 77067; 77080

== ENCOUNTER → 2023-11-11 | Outpatient (CLI) | payer BC, MEDICARE ==
[2023-11-11 09:42] VITALS: BP 135/75; PULSE 99; RESP 16
--- NOTE | 2023-11-11 15:01 | P.PAINPG ---
PQRS Measure Charge Sheet Comment: A 73 yr old female with a history of severe and chronic LBP > 3 mo secondary to lumbar radiculopathy and spondylosis with facet arthropathy without myelopathy presents today for evaluation. Pain level is provoked at 6 /10 in intensity, predominantly axial, constant, localized in the lumbar spine, achy in character w occasional shooting towards the BLEs. Pain is provoked by over activity, bending, lifting. Pain is alleviated with medications, topicals, repositioning and rest. Chiropractic treatments are contraindicated for her by Dr Terry. Oswestry axial pain score of 26. Interventional pain procedures completed include TESI T9-T10 x1 (2022) Patient is currently on Tyl, Lidoderm Patient denies any side effects of the medication(s), denies excessive drowsiness or sleepiness, denies suicidal ideation and reports that the current pain medication is helping to control the pain and improve activities of daily living. Patient denies any motor or sensory deficits. Patient denies any fever or night sweats, denies any change in the bowel movements or urination. Physical Examination: -Constitutional: Cooperative. Not in acute distress . - Neurologic: Cranial nerve II to XII intact. No focal neurological deficits. - Psychatric: Alert & oriented x 3. Matching mood & appropriate affect. Judgment and insight intact. - Musculoskeletal: Cervical spine: Muscle bulk/ tone/ strength in the bilateral upper extremities normal Vertebral body tenderness to palpation over Spurling test positive Distraction test positive Facet loading test positive TTP Thoracic spine Muscle bulk / tone/ strength in the bilateral paraspinal muscles normal Vertebral body tender to palpation over Facet loading test positive TTP Lumbar spine: Motor bulk/ tone/ strength lower extremities , thigh and legs : 5/5 Deep tendon reflexes : Normal Knee Jerk. Normal Ankle Jerk . Vertebral body tenderness to palpation over L5 Lumbar Facet Loading Test positive Straight Leg Raise: positive at 30 degrees right side/ left side Gaenslen's Test positive Sacral spine : Severe tenderness over the Sacroiliac joint: right side / left side Range of motion: Flexion of the lumbar spine <60 degrees Range of motion: Extension of the lumbar spine <20 degrees Gaenslen's Test positive right side / left side James test: positive right side / left side Thigh Thrust Test positive right side / left side Sacral Thrust Test positive right side / left side Imaging: X ray lumbar spine from 10/22/23 reviewed MRI non contrast of the thoracic spine showing incidental finding of L1-L2 mild spinal stenosis from 06/01/22 reviewed Assessment and plan: Chronic LBP secondary to radiculopathy, spondylosis with facet arthropathy without myelopathy Recommendation of PT x 6 wks and MRI non contrast lumbar spine M54.16. All questions answered. I have spent less than 30 minutes on patient care today. Dr Haskins was available by phone for the evaluation of this patient. The time was used to review the medical records including relevant urine studies and Prescription history (MAPs), review of the available imaging, evaluation and examination of the patient, coordination of care with the medical staff and if applicable referring physicians, as well as creation of the medical record PQRS Narrative: Smoking Status Never smoker Hx Alcohol Use (MH) No Home Medications: Ambulatory Orders Dulaglutide [Trulicity] 1.5 mg SQ MAR 02/15/22 Naproxen Sodium [Aleve] 220 mg PO BID 05/03/22 lisinopriL 2.5 mg PO HS 07/30/22 Controlled Substance Measures - Controlled Substance Measures Is patient prescribed a controlled substance at discharge?: No
== END ==
LOC: PNWHC3 09:10
PROVIDERS: ATTEND Specialist
DX: M47.26 Other spondylosis with radiculopathy, lumbar region (principal); Z88.8 Allergy status to other drugs, medicaments and biological substances
CPT/HCPCS: 99211

== ENCOUNTER → 2023-12-19 | Outpatient (CLI) | payer BC, MEDICARE ==
[2023-12-19 08:27] VITALS: BP 125/78; PULSE 103; RESP 16; TEMP 98.4
--- NOTE | 2023-12-19 14:36 | P.PAINPG ---
PQRS Measure Charge Sheet Comment: A 73 yr old female with a history of severe and chronic LBP > 3 mo secondary to lumbar radiculopathy and spondylosis with facet arthropathy without myelopathy presents today for evaluation. Pain level is provoked at 6-7 /10 in intensity, predominantly axial, constant, localized in the lumbar spine, achy in character w occasional shooting towards the BLEs. Pain is provoked by over activity, bending, lifting. Pain is alleviated with PT x 8 wks which ended in Nov 2023, HEP stretches daily since early Nov 2023, medications, topicals, repositioning and rest. Chiropractic treatments are contraindicated for her by Dr Terry. Interventional pain procedures completed include TESI T9-T10 x1 (2022) Patient is currently on Tyl, Lidoderm Patient denies any side effects of the medication(s), denies excessive drowsiness or sleepiness, denies suicidal ideation and reports that the current pain medication is helping to control the pain and improve activities of daily living. Patient denies any motor or sensory deficits. Patient denies any fever or night sweats, denies any change in the bowel movements or urination. Physical Examination: -Constitutional: Cooperative. Not in acute distress . - Neurologic: Cranial nerve II to XII intact. No focal neurological deficits. - Psychatric: Alert & oriented x 3. Matching mood & appropriate affect. Judgment and insight intact. - Musculoskeletal: Cervical spine: Muscle bulk/ tone/ strength in the bilateral upper extremities normal Vertebral body tenderness to palpation over Spurling test positive Distraction test positive Facet loading test positive TTP Thoracic spine Muscle bulk / tone/ strength in the bilateral paraspinal muscles normal Vertebral body tender to palpation over Facet loading test positive TTP Lumbar spine: Motor bulk/ tone/ strength lower extremities , thigh and legs : 5/5 Deep tendon reflexes : Normal Knee Jerk. Normal Ankle Jerk . Vertebral body tenderness to palpation over L5 Lumbar Facet Loading Test positive Straight Leg Raise: positive at 30 degrees right side/ left side Gaenslen's Test positive Sacral spine : Severe tenderness over the Sacroiliac joint: right side / left side Range of motion: Flexion of the lumbar spine <60 degrees Range of motion: Extension of the lumbar spine <20 degrees Gaenslen's Test positive right side / left side James test: positive right side / left side Thigh Thrust Test positive right side / left side Sacral Thrust Test positive right side / left side Imaging: X ray lumbar spine from 10/22/23 reviewed MRI non contrast of the thoracic spine showing incidental finding of L1-L2 mild spinal stenosis from 06/01/22 reviewed Assessment and plan: Chronic LBP secondary to radiculopathy, spondylosis with facet arthropathy without myelopathy Recommendation of MRI non contrast lumbar spine M54.16. All questions answered. I have spent less than 30 minutes on patient care today. Dr Haskins was ash ilable by phone for the evaluation of this patient. The time was used to review the medical records including relevant urine studies and Prescription history (MAPs), review of the available imaging, evaluation and examination of the patient, coordination of care with the medical staff and if applicable referring physicians, as well as creation of the medical record PQRS Narrative: Smoking Status Never smoker Hx Alcohol Use (MH) No Home Medications: Ambulatory Orders Dulaglutide [Trulicity] 1.5 mg SQ MAR 02/15/22 Naproxen Sodium [Aleve] 220 mg PO BID 05/03/22 lisinopriL 2.5 mg PO HS 07/30/22 Controlled Substance Measures - Controlled Substance Measures Is patient prescribed a controlled substance at discharge?: No
== END ==
LOC: PNWHC3 07:49
PROVIDERS: ATTEND Specialist
DX: M54.16 Radiculopathy, lumbar region
CPT/HCPCS: 99211

== ENCOUNTER → 2024-03-12 | Outpatient (CLI) | payer BC, MEDICARE ==
[2024-03-12 08:05] VITALS: BP 143/80; PULSE 101; RESP 16
--- NOTE | 2024-03-12 14:17 | P.PAINPG ---
Objective - Vital Signs Vital signs: Intake & Output 03/11/24 03/12/24 03/12/24 18:59 06:59 18:59 Weight 61.235 kg PQRS Measure Charge Sheet Comment: A 73 yr old female with a history of severe and chronic LBP > 3 mo secondary to lumbar radiculopathy, spondylosis with facet arthropathy without myelopathy presents today for evaluation. Pain level is provoked at 6 /10 in intensity, predominantly axial, constant, localized in the lumbar spine, achy in character w occasional shooting towards the R hip. Pain is provoked by over activity, bending, lifting. Pain is alleviated with PT x 8 wks in Nov-Jan 2024, HEP stretches daily since early Nov 2023, medications, topicals, repositioning and rest. Chiropractic treatments are contraindicated for her by Dr Terry. Interventional pain procedures completed include TESI T9-T10 x1 (2022) Patient is currently on Tyl, Lidoderm Patient denies any side effects of the medication(s), denies excessive drowsiness or sleepiness, denies suicidal ideation and reports that the current pain medication is helping to control the pain and improve activities of daily living. Patient denies any motor or sensory deficits. Patient denies any fever or night sweats, denies any change in the bowel movements or urination. Physical Examination: -Constitutional: Cooperative. Not in acute distress . - Neurologic: Cranial nerve II to XII intact. No focal neurological deficits. - Psychatric: Alert & oriented x 3. Matching mood & appropriate affect. Judgment and insight intact. - Musculoskeletal: Cervical spine: Muscle bulk/ tone/ strength in the bilateral upper extremities normal Vertebral body tenderness to palpation over Spurling test positive Distraction test positive Facet loading test positive TTP Thoracic spine Muscle bulk / tone/ strength in the bilateral paraspinal muscles normal Vertebral body tender to palpation over Facet loading test positive TTP Lumbar spine: Motor bulk/ tone/ strength lower extremities , thigh and legs : 5/5 Deep tendon reflexes : Normal Knee Jerk. Normal Ankle Jerk . Vertebral body tenderness to palpation over L5 Lumbar Facet Loading Test positive Straight Leg Raise: positive at 30 degrees right side/ left side Gaenslen's Test positive Sacral spine : Severe tenderness over the Sacroiliac joint: right side / left side Range of motion: Flexion of the lumbar spine <60 degrees Range of motion: Extension of the lumbar spine <20 degrees Gaenslen's Test positive right side / left side James test: positive right side / left side Thigh Thrust Test positive right side / left side Sacral Thrust Test positive right side / left side Imaging: X ray lumbar spine from 10/22/23 reviewed MRI non contrast of the thoracic spine showing incidental finding of L1-L2 mild spinal stenosis from 06/01/22 reviewed Assessment and plan: Chronic LBP secondary to radiculopathy, spondylosis with facet arthropathy without myelopathy Recommendation of lumbar x ray M54.16. All questions answered. I have spent less than 30 minutes on patient care today. Dr Haskins was available by phone for the evaluation of this patient. The time was used to review the medical records including relevant urine studies and Prescription history (MAPs), review of the available imaging, evaluation and examination of the patient, coordination of care with the medical staff and if applicable referring physicians, as well as creation of the medical record PQRS Narrative: Smoking Status Never smoker Hx Alcohol Use (MH) No Home Medications: Ambulatory Orders Dulaglutide [Trulicity] 1.5 mg SQ MAR 02/15/22 Naproxen Sodium [Aleve] 220 mg PO BID 05/03/22 lisinopriL 2.5 mg PO HS 07/30/22 Controlled Substance Measures - Controlled Substance Measures Is patient prescribed a controlled substance at discharge?: No
== END ==
LOC: PNWHC3 07:38
PROVIDERS: ATTEND Specialist
DX: M47.26 Other spondylosis with radiculopathy, lumbar region (principal); Z88.8 Allergy status to other drugs, medicaments and biological substances
CPT/HCPCS: 99211

== ENCOUNTER → 2024-03-13 | Outpatient (CLI) | payer BC, MEDICARE ==
--- NOTE | 2024-03-14 10:45 | XR ---
EXAMINATION TYPE: XR lumbar spine 2 or 3V DATE OF EXAM: 03/13/2024 4:35 PM COMPARISON: None. CLINICAL INDICATION: Female, 73 years old with history of M54.16 RADICULOPATHY, LUMBAR REGION, TECHNIQUE: 3 views of the lumbar spine submitted FINDINGS: Curvature convex to the right. There are 5 lumbar type vertebral bodies identified. The l umbar spine shows satisfactory alignment without evidence of acute fracture or dislocation. Vertebral body heights are within normal limits. Mild degenerative disc space narrowing throughout the lumbar spine being moderate at the thoracolumbar junction. Mild scattered ventral spondylosis. The overlyi ng soft tissue appears unremarkable. IMPRESSION: No acute fracture or dislocation is seen in the lumbar spine.ICD 10 NO FRACTURE, INITIAL EVALUATION [facility], , 03/14/2024 10:42 AM
== END | disposition home or self-care (01) ==
LOC: RADXRMAIN 16:19
PROVIDERS: ATTEND Physician Assistant Medical
DX: M54.16 Radiculopathy, lumbar region (principal)
CPT/HCPCS: 72100

== ENCOUNTER → 2024-04-06 | Outpatient (CLI) | payer BC, MEDICARE ==
--- NOTE | 2024-04-07 08:52 | MR ---
EXAMINATION TYPE: MR lumbar spine wo con DATE OF EXAM: 04/06/2024 7:58 PM COMPARISON: 03/02/2022. CLINICAL INDICATION: Female, 73 years old with history of M54.16; PHH, Low back pain, Radiculopathy b oth legs, mostly right TECHNIQUE: Multi planar, multi sequence imaging was performed utilizing: T1-weighted, T2-weighted, a nd turbo inversion recovery imaging of the lumbar spine. IV Contrast: mL (None, if empty) FINDINGS: Alignment: The lumbar vertebral bodies have preserved heights and alignment. Cord: The conus medullaris and the distal spinal cord appear unremarkable with regards to their signa l intensity and morphology. Bones/Discs: Degeneration changes throughout the spine with osteophyte formation and facet joint arth ropathy. Multilevel disc desiccation is present. Reactive adjoining endplate edema at L1-L2 T12-L1: No evidence of significant spinal canal stenosis. Facet joint arthropathy mild bilateral neur al foraminal stenosis. L1-L2: No evidence of significant spinal canal stenosis. Facet joint arthropathy mild bilateral neura l foraminal stenosis. L2-L3: No evidence of significant spinal canal stenosis. Facet joint arthropathy mild bilateral neura l foraminal stenosis. L3-L4: No evidence of significant spinal canal stenosis. Facet joint arthropathy mild bilateral neura l foraminal stenosis. L4-L5: No evidence of significant spinal canal stenosis. Facet joint arthropathy mild bilateral neura l foraminal stenosis. L5-S1: The disc has a rounded posterior morphology without significant spinal canal stenosis. Facet j oint arthropathy with mild bilateral neural foraminal stenosis. No significant spinal canal or neural foraminal stenosis in the remainder of the visualized levels. Other findings: None. IMPRESSION: 1. No definitive evidence of disc herniation or significant spinal canal stenosis. 2. [id number] disc degeneration with associated osteoarthritic changes. Multilevel at least mi ld neural foraminal stenosis. 3. [facility], , 04/07/2024 8:49 AM
== END | disposition home or self-care (01) ==
LOC: RADMRIMAIN 19:45
PROVIDERS: ATTEND Specialist
DX: M51.16 Intervertebral disc disorders with radiculopathy, lumbar region (principal); M99.71 Connective tissue and disc stenosis of intervertebral foramina of cervical region
CPT/HCPCS: 72148

== ENCOUNTER → 2024-04-29 | Outpatient (CLI) | payer BC, MEDICARE ==
[2024-04-29 11:27] VITALS: BP 141/83; PULSE 85; RESP 16; TEMP 96.2
--- NOTE | 2024-04-29 15:15 | P.PAINPG ---
PQRS Measure Charge Sheet Comment: A 74 yr old female with a history of severe and chronic LBP > 3 mo secondary to lumbar radiculopathy, spondylosis with facet arthropathy without myelopathy presents today for evaluation. Pain level is provoked at 7 /10 in intensity, predominantly axial, constant, localized in the mid lumbar spine, achy in c haracter w occasional shooting towards the LEs. Pain is provoked by over activity, bending, lifting. Pain is alleviated with PT x 8 wks in Nov-Jan 2024, HEP stretches daily since early Nov 2023, medications, topicals, use of a TENS unit, repositioning and rest. Chiropractic treatments are contraindicated for her by Dr Terry. Interventional pain procedures completed include TESI T9-T10 x1 (2022) Patient is currently on Tyl, Lidoderm, aleve Patient denies any side effects of the medication(s), denies excessive drowsiness or sleepiness, denies suicidal ideation and reports that the current pain medication is helping to control the pain and improve activities of daily living. Patient denies any motor or sensory deficits. Patient denies any fever or night sweats, denies any change in the bowel movements or urination. Physical Examination: -Constitutional: Cooperative. Not in acute distress . - Neurologic: Cranial nerve II to XII intact. No focal neurological deficits. - Psychatric: Alert & oriented x 3. Matching mood & appropriate affect. Judgment and insight intact. - Musculoskeletal: Cervical spine: Muscle bulk/ tone/ strength in the bilateral upper extremities normal Vertebral body tenderness to palpation over Spurling test positive Distraction test positive Facet loading test positive TTP Thoracic spine Muscle bulk / tone/ strength in the bilateral paraspinal muscles normal Vertebral body tender to palpation over Facet loading test positive TTP Lumbar spine: Motor bulk/ tone/ strength lower extremities , thigh and legs : 5/5 Deep tendon reflexes : Normal Knee Jerk. Normal Ankle Jerk . Vertebral body tenderness to palpation over L5 Lumbar Facet Loading Test positive Straight Leg Raise: positive at 30 degrees right side/ left side Gaenslen's Test positive Sacral spine : Severe tenderness over the Sacroiliac joint: right side / left side Range of motion: Flexion of the lumbar spine <60 degrees Range of motion: Extension of the lumbar spine <20 degrees Gaenslen's Test positive right side / left side James test: positive right side / left side Thigh Thrust Test positive right side / left side Sacral Thrust Test positive right side / left side Imaging: MRI non contrast lumbar spine from 04/06/24 reviewed MRI non contrast of the thoracic spine showing incidental finding of L1-L2 mild spinal stenosis from 06/01/22 reviewed Assessment and plan: Chronic LBP secondary to L5-S1 radiculopathy, spondylosis with facet arthropathy without myelopathy Recommendation of MAHSA L5-S1 #1. Risks, benefits of procedure discussed and pt verbalized understanding. Protocol for discontinuation/ continuation of medications marciano procedure discusse. All questions answered. PQRS Narrative: Smoking Status Never smoker Hx Alcohol Use (MH) No Home Medications: Ambulatory Orders Dulaglutide [Trulicity] 1.5 mg SQ MAR 02/15/22 Naproxen Sodium [Aleve] 220 mg PO BID 05/03/22 lisinopriL 2.5 mg PO HS 07/30/22 Controlled Substance Measures - Controlled Substance Measures Is patient prescribed a controlled substance at discharge?: No
== END ==
LOC: PNWHC3 09:45
PROVIDERS: ATTEND Specialist
DX: M47.27 Other spondylosis with radiculopathy, lumbosacral region (principal); G89.29 Other chronic pain; Z88.8 Allergy status to other drugs, medicaments and biological substances
CPT/HCPCS: 99211

== ENCOUNTER 2024-05-14 06:44 | Day surgery (SDC) | payer BC, MEDICARE ==
[2024-05-13 09:38] VITALS: BMI 24.9
[2024-05-14] MEDS ORDERED: LACTATED RINGERS 1,000 ML IV SCH (06:53)
[2024-05-14 07:05] VITALS: TEMP 97.3
[2024-05-14 07:11] LABS: Glucose,Whole Blood 148 mg/dL (70-110)
[2024-05-14] MEDS ORDERED: IOPAMIDOL M200 10 ML VIAL ONE (07:52)
[2024-05-14] MEDS ORDERED: methylPREDNISolone ACETATE 40 MG/ML 1 ML VIAL ONE (07:52)
--- NOTE | 2024-05-14 07:58 | P.PCN ---
Date of Procedure: 05/14/24 Procedure(s) Performed: PREOPERATIVE DIAGNOSIS: 1- Lumbar Degenerative Disc Diseases 2-Lumbar spondylosis with Facet arthropathy without myelopathy. 3-lumbar radiculopathy POSTOPERATIVE DIAGNOSIS: 1-lumbar degenerative disc disease. 2-lumbar spondylosis with facet arthropathy without myelopathy. 3-lumbar radiculopathy PROCEDURE 1. Lumbar epidural steroid injection under fluoroscopic guidance at the L5-S1 level. (Fluoroscopy imaging was available in radiology department) 2. Lumbar epidurogram. ANESTHESIA: Lidocaine 1% 3 and then only. EBL: Minimal PROCEDURE INDICATION: The patient with low back pain and radiculitis symptoms unresponsive to conservative treatment. Fluoroscopy was used to optimize visualization of the needle placement and to maximize safety. PROCEDURE DESCRIPTION / TECHNIQUE: The patient was seen and identified in the preoperative area. Risks, benefits, complications including but not limited to infections ,bleeding ,allergic reaction to the medications ,nerve damage and not complete pain releife , and alternatives were discussed with the patient. The patient agreed to proceed with the procedure and signed the consent, and vital signs were stable. Patient was taken to the OR and time out was completed. The patient was placed in the prone position on procedure table and a pillow was placed under the abdomen to reduce lumbar lordosis. The lumbosacral area was prepped and draped in the usual sterile fashion.ere closely monitored during the procedure. Vital signs was monitered during the entire procedure. Using anterior-posterior fluoroscopy, the L5-S1 interlaminar space was identified and the skin over this site was marked and then infiltrated with 1% lidocaine subcutaneously. Subsequently, a 20-gauge Tuohy epidural needle was inserted and advanced toward the epidural space using the ``Loss of resistance technique and guided by AP and lateral fluoroscopy. The correct needle position in the epidural space was verified with the injection of 2 mL of the water soluble contrast dye Isovue 200 contrast and observing an excellent epidurogram with the epidural spread of the dye, after negative aspiration for blood and CSF and in the absence of paresthesias. Again after negative aspiration, a 5 ml mixture containing 40 mg of Depo-medrol ( Preservetive Free ), and 2 ml of preservative free Normal Saline, and 2 ml of preservative free lidocaine 1% solution was injected and a washout of epidurogram was seen. Needle was withdrawn intact, skin was cleansed, and bandages were applied. COMPLICATIONS: None DISPOSITION / PLANS: The patient was placed in a supine position and transferred to the recovery area in a stable condition for observation. There was no evidence of lower extremity motor or sensory deficit after the procedure. Patient was discharged from the recovery room after meeting discharge criteria. Home discharge instructions were given to the patient by the staff. The patient was reexamined prior to discharge. The patient will schedule a follow up in the clinic in 2-4 weeks.
--- NOTE | 2024-05-14 08:06 | FL ---
EXAMINATION TYPE: FL guided pain mgmt statistic DATE OF EXAM: 05/14/2024 8:01 AM COMPARISON: Pre Operative Images if available both CT/MRI or plain film CLINICAL INDICATION: Female, 74 years old with history of LESI; TECHNIQUE: FL guided pain mgmt statistic, multiple fluoroscopic images provided for procedure. Total fluoroscopy time: 6.1 seconds Total submitted images to PACS: 1 DAP: [id number] mGym2 Gycm2 uGym2 cGycm2 or equivalent. FINDINGS: Fluoroscopic images during injection for pain management demonstrate multilevel degeneration changes throughout the spine. No evidence for fracture. No acute process identified. IMPRESSION: 1. No evidence for intraoperative complication. 2. Please see the operative/procedural note for further details. [facility], , 05/14/2024 8:04 AM
[2024-05-14 08:17] VITALS: BP 133/71; PULSE 87; RESP 18
== END 2024-05-14 08:22 | disposition home or self-care (01) ==
LOC: ORPAIN 06:44
PROVIDERS: ATTEND Specialist
DX: M51.16 Intervertebral disc disorders with radiculopathy, lumbar region (principal); M47.26 Other spondylosis with radiculopathy, lumbar region; Z88.8 Allergy status to other drugs, medicaments and biological substances
CPT/HCPCS: 62323; Q9966; J1010

== ENCOUNTER → 2024-07-07 | Outpatient (CLI) | payer BC, MEDICARE ==
--- NOTE | 2024-07-08 07:52 | MM ---
Reason for Exam: Screening (asymptomatic). Last mammogram was performed 1 year(s) and 2 month(s) ago. Patient History: Menarche at age 14. First Full-Term at age 27. Left ovary removed at age 49. Right ovary removed at age 49. Hysterectomy at age 49. Postmenopausal. Estrogen, starting at age 49 for 9 years, 7 months. Risk Values: Edwige 5 year model risk: 2.0%. NCI Lifetime model risk: 4.8%. Prior Study Comparison: 11/12/2008 Right Diagnostic Mammogram, [facility]. 04/20/2010 Bilateral Diagnostic Mammogram, [facility]. 05/22/2023 Bilateral MG 3D screening mammo w/cad, [facility]. Tissue Density: The breasts are heterogeneously dense, which may obscure small masses. Findings: Analyzed By CAD. A few benign-appearing calcifications throughout the left breast are redemonstrated. Stable asymmetric prominent tissue left breast upper outer aspect. There is no suspicious new group of microcalcifications or new suspicious mass in either breast. Overall Assessment: Benign, BI-RAD 2 Management: Screening Mammogram of both breasts in 1 year. . Patient should continue monthly self-breast exams. A clinical breast exam by your physician is recommended on an annual basis. This exam should not preclude additional follow-up of suspicious palpable abnormalities. Note on Edwige scores and lifetime risk: 1. A Edwige score greater than 3% is considered moderate risk. If this is the case, consider specialist referral to assess eligibility for a risk reducing agent. 2. If overall lifetime risk for the development of breast cancer is 20% or higher, the patient may qualify for future screening with alternating mammogram and breast MRI. [facility], , 07/08/2024 7:49 AM. Electronically signed and approved by: John Tapia M.D.
== END | disposition home or self-care (01) ==
LOC: RADMAMWWP 16:10
PROVIDERS: ATTEND Family Medicine
DX: Z12.31 Encounter for screening mammogram for malignant neoplasm of breast (principal); R92.333 Mammographic heterogeneous density, bilateral breasts; Z78.0 Asymptomatic menopausal state
CPT/HCPCS: 77063; 77067